=== PATIENT | female | born 1935 | race Caucasian/White ===

== ENCOUNTER → 2017-05-19 | Outpatient (CLI) | payer MEDICARE, BC ==
[~2017-05-19] MED LIST: ASPIR-LOW81 MG PO; ATORVASTATIN; CEPHALEXIN500 M1 PO; FISH OIL CONC1000 MG PO; KEFLEX250 MG PO; MICROZIDE12.5 MG PO; MVI; PREDNISONE10 MG PO; [UNRECOGNIZED DRUG - REMARK]
== END ==
LOC: MC.RAD 11:02
DX: Z12.31 Encounter for screening mammogram for malignant neoplasm of breast (principal)

== ENCOUNTER 2017-07-03 13:38 | Emergency (ER) | payer MEDICARE, BC ==
[~2017-07-03] VITALS: Ht 152.4 cm; Wt 59.1 kg
[2017-07-03 13:50] VITALS: BP 138/63; TEMP 98.2
[2017-07-03] MEDS ORDERED: COUMADIN 1MG1 MG/TAB (14:00)
[2017-07-03 15:21] LABS: BASO % 0.3 % (0.0-2.0); EOS # 0.1 (0.0-0.7); EOS % 2.2 % (0-4.0); GRAN # 4.2 (1.4-6.5); GRAN % 70.4 % (42.2-75.2); HEMATOCRIT 42.4 % (37.0-47.0); HEMOGLOBIN 13.9 g/dl (12.5-16.0); LYMPH # 1.3 (1.2-3.4); MEAN CELL VOLUME 99 fl (80.0-100.0); MEAN CORPUSCULAR HEMOGLOBIN 32 pg (27.0-31.0); MEAN CORPUSCULAR HGB CONC 33 g/dl (33.0-37.0); MEAN PLATELET VOLUME 10.9 fl (7.4-10.4); MONO # 0.4 (0.1-0.6); MONO % 5.9 % (1.7-9.3); PLATELET COUNT 184 K/mm3 (130-400); REDCELL DISTRIBUTION WIDTH-CV 13.8 % (11.5-14.5)
[2017-07-03 15:26] LABS: PROTHROMBIN TIME 23.5 SECONDS (9.7-12.8)
[2017-07-03 16:12] VITALS: PULSE 72
== END 2017-07-03 16:13 | disposition home or self-care (01) ==
LOC: COL.ER 13:38
PROVIDERS: Physician Assistant
DX: S90.32XA Contusion of left foot, initial encounter (principal); E78.5 Hyperlipidemia, unspecified; Z86.711 Personal history of pulmonary embolism; Z86.718 Personal history of other venous thrombosis and embolism; Z85.828 Personal history of other malignant neoplasm of skin; Z79.01 Long term (current) use of anticoagulants; Z79.82 Long term (current) use of aspirin; X58.XXXA Exposure to other specified factors, initial encounter

== ENCOUNTER 2022-10-20 08:23 | Day surgery (SDC) | payer MEDICARE, BC ==
[2022-10-20] VITALS (15 sets, daily range): BP systolic 122–166; BP diastolic 42–102; PULSE 46–79; TEMP 97.4–98.6
[~2022-10-20] VITALS: Ht 152.4 cm; Wt 57.4 kg
[~2022-10-20 08:23] MED LIST changes: +AMOXICILLIN 8751 TAB PO; +ASPIRIN 81M81 MG/TA2 PO; +CALCIUM CARB W/1 TA1 PO; +COUMADIN 1MG1 MG/TAB; +COUMADIN 22.5 MG/TAB PO; +COUMADIN 5MG5 MG/TAB PO; +HCTZ 25MG TAB25 MG PO; +MUCINEX1200 MG PO; +MULTIPLE VITAMI1 TA5 PO; +OMEGA-31 SGL PO; +OMNICEF 300MG300 MG PO; +TYLENOL 325MG325 MG PO; +VALU-DRYL ALLER25 MG PO; +ZITHROMAX 250M250 MG PO; +ZOCOR 40MG40 MG PO; +ZOLOFT 100MG100 MG PO
[2022-10-20] MEDS ORDERED: PEPCID 20MG TAB20 MG PO (08:52)
[2022-10-20] MEDS ORDERED: MULTI-VITAMIN W1 TA1 PO (08:52)
[2022-10-20] MEDS ORDERED: TOPROL XL100 MG PO (08:52)
[2022-10-20] MEDS ORDERED: ELIQUIS 2.5 PO (08:53)
[2022-10-20] MEDS ORDERED: PRINIVIL2.5 MG PO (08:53)
[2022-10-20] MEDS ORDERED: OMEGA-3 1000 MG1 CAP PO (08:54)
[2022-10-20 09:15] LABS: BASO % 0.4 % (0.0-2.0); EOS # 0.1 K/mm3 (0.0-0.7); EOS % 2.5 % (0.0-4.0); GRAN # 4.2 K/mm3 (1.4-6.5); HEMATOCRIT 43.5 % (37.0-47.0); HEMOGLOBIN 14.3 g/dl (12.5-16.0); LYMPH # 0.9 K/mm3 (1.2-3.4); LYMPH % 15.8 % (20.0-51.0); MEAN CELL VOLUME 101 fl (80.0-100.0); MEAN CORPUSCULAR HEMOGLOBIN 33 pg (27-31); MEAN CORPUSCULAR HGB CONC 33 g/dl (33.0-37.0); MEAN PLATELET VOLUME 10.3 fl (7.4-10.4); MONO # 0.3 K/mm3 (0.1-0.6); MONO % 6.1 % (1.7-9.3); PLATELET COUNT 177 K/mm3 (130-400); REDCELL DISTRIBUTION WIDTH-CV 14.2 % (11.5-14.5)
[2022-10-20 09:22] LABS: PROTHROMBIN TIME 11.7 SECONDS (9.7-12.8)
[2022-10-20 09:35] LABS: CALCIUM 9.3 mg/dL (8.4-10.2); CREATININE, serum 0.9 mg/dL (0.57-1.11); POTASSIUM 5.2 mmol/L (3.5-4.5)
--- NOTE | 2022-10-20 10:39 | NUR ---
PATIENT ARRIVED VIA BED AND TRANSFERRED TO OR TABLE WITH 1 ASSIST. VITAL SIGNS TAKEN, VSS. PATIENT PREPPED IN STERILE FASHION. SEE MERGE FOR PROCEDURE, MEDICATIONS, VITAL SIGNS, EQUIPMENT, AND OTHER PROCEDURAL INFORMATION
--- NOTE | 2022-10-20 12:49 | NUR ---
PT ADMISSION INTAKE AND ASSESSMENT COMPLETED. PT AND FRIEND ORIENTED TO ROOM, CALL LIGHT WITHIN REACH. PT DENIES ANY PAIN OR NEED AT THIS TIME. DRESSINGS X2 TO CHEST BOTH C/D/I, PRESSURE DRESSING ON PACEMAKER AT THIS TIME. L ARM IN SLING. POST OP VSS. WILL CONTINUE TO MONITOR.
[2022-10-21 04:23] VITALS: BP 153/61; PULSE 76; TEMP 98
[2022-10-21 07:24] VITALS: BP 159/69; PULSE 73; TEMP 98.4
[2022-10-21 09:00] VITALS: BP_SYST 159
--- NOTE | 2022-10-21 09:30 | NUR ---
pt resting in bed. meds given and assessment complete. pacemaker dressing cdi. sling in place to left arm. vss and tele in place. INT to right ac. pt denies needs. call light in reach.
[2022-10-21 09:39] LABS: CALCIUM 9.6 mg/dL (8.4-10.2); CREATININE, serum 0.85 mg/dL (0.57-1.11); POTASSIUM 4.6 mmol/L (3.5-4.5)
--- NOTE | 2022-10-21 09:56 | NUR ---
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 Ruth is a delight and is doing well. Creative Coordinator wished her well and said a blessing for her.
[2022-10-21 11:30] VITALS: BP 144/73; PULSE 68; TEMP 98.3
[2022-10-21] MEDS ORDERED: CEPHALEXIN500 M1 PO (11:50)
--- NOTE | 2022-10-21 12:34 | NUR ---
IV discontinued. discharge instructions given to pt and family. pt escorted out via wheelchair to personal vehicle.
== END 2022-10-21 12:35 | disposition home or self-care (01) ==
LOC: COL.CAR 08:23 → SURG 12:48 → COL.CAR 10-21 12:35
PROVIDERS: Internal Medicine Cardiovascular Disease
DX: I49.5 Sick sinus syndrome (principal); I45.5 Other specified heart block; R55 Syncope and collapse; I47.1 Supraventricular tachycardia; I10 Essential (primary) hypertension; E78.2 Mixed hyperlipidemia; I34.0 Nonrheumatic mitral (valve) insufficiency; Z86.718 Personal history of other venous thrombosis and embolism; Z79.01 Long term (current) use of anticoagulants; Z79.899 Other long term (current) drug therapy; Z87.891 Personal history of nicotine dependence
CPT/HCPCS: OP; C1769; C1785; C1894; C1898; J0690; J1644; J2250; J3010; J7030